=== PATIENT | female | born 1990 | race African-American/Black ===

== ENCOUNTER 2017-03-20 14:36 | Emergency (ER) | payer MEDICAID, SELFPAY ==
--- NOTE | 2017-03-20 15:54 | RAD ---
2 VIEW CHEST: Date: 03/20/17 COMPARISON: 11/22/08. INDICATION: Cough, body aches, fever, headache, and sore throat. FINDINGS: Lungs are clear. No effusion or pneumothorax. Cardiac silhouette is normal in size. Osseous structure s intact. IMPRESSION: No focal consolidation. POS: [facility]
[2017-03-20] MEDS ORDERED: Acetaminophen 325 MG TAB ONE (16:44)
[2017-03-20] MEDS ORDERED: Acetaminophen 500 MG TAB ONE (16:44)
== END 2017-03-20 16:40 | disposition home or self-care (01) ==
LOC: ERS 14:36
DX: J10.1 Influenza due to other identified influenza virus with other respiratory manifestations (principal); F41.9 Anxiety disorder, unspecified; F31.9 Bipolar disorder, unspecified; F20.9 Schizophrenia, unspecified
CPT/HCPCS: 71020; 87081; 87430